=== PATIENT | male | born 1960 | race Caucasian/White ===

== ENCOUNTER 2020-04-24 12:57 | Emergency (ER) | payer BC ==
[2020-04-24 13:21] VITALS: TEMP 98; O2SAT 97
--- NOTE | 2020-04-24 13:30 | ED.PDOC ---
History of Present Illness - General Chief Complaint: ENT Problem Stated Complaint: left earbud stuck in ear Time Seen by Provider: 04/24/20 13:28 Source: patient, RN notes reviewed, Vital Signs reviewed Exam Limitations: no limitations - History of Present Illness Initial Comments: Patient had an earbud breakoff in his left ear while swimming. Patient unable to remove the earbud. Patient denies any pain. Nothing makes it better or worse. There is no radiation of pain or sensation from the earbud. This happened just prior to arrival. Timing/Duration: abrupt Severity: mild EENT Location: ear (L) Prearrival Treatment: no prearrival treatment Worsening Factors: nothing Associated Symptoms: denies symptoms Allergies/Adverse Reactions: Allergies NO KNOWN ALLERGY Allergy (Verified 04/24/20 13:14) Review of Systems - Review of Systems Constitutional: States: no symptoms reported, see HPI. Denies: chills, fever, malaise EENTM: States: see HPI, other - Discomfort in the left ear at the location of the ear but that is in place. Respiratory: States: no symptoms reported. Denies: cough, short of breath, stridor Cardiology: States: no symptoms reported. Denies: chest pain, palpitations, syncope Gastrointestinal/Abdominal: States: no symptoms reported. Denies: abdominal pain, diarrhea, nausea Genitourinary: States: no symptoms reported Musculoskeletal: States: no symptoms reported. Denies: back pain, joint pain, neck pain Skin: States: no symptoms reported. Denies: change in color, rash Neurological: States: no symptoms reported. Denies: headache, numbness, weakness Endocrine: States: no symptoms reported Hematologic/Lymphatic: States: no symptoms reported All other Systems: No Change from Baseline Past Medical History (General) - Vaccination History Hx Tetanus, Diphtheria Vaccination: No Hx Influenza Vaccination: No Hx Pneumococcal Vaccination: No - Activities of Daily Living Hospice Agency (if applicable):: None - Female History Patient is a Female of Child Bearing Age (10 -59 yrs old): No Family Medical History - Family History Mother Family History: Unknown Physical Exam - Physical Exam General Appearance: Alert, Comfortable, Well Developed, Well Groomed, Well Hydrated, Well Nourished Eye Exam: bilateral normal Ear Exam: right ear: canal normal, left ear: foreign body - Earbud which was removed with alligator forceps. There was no trauma to the ear canal. There was no bleeding or redness once the earbud was removed. Patient's discomfort relieved once the earbud was removed., bilateral ear: auricle normal, TM normal Nasal Exam: normal inspection Neck: non-tender, full range of motion, supple, normal inspection Cardiovascular/Respiratory: regular rate, rhythm, normal peripheral pulses, normal breath sounds, no respiratory distress Abdominal Exam: non-tender, no organomegaly Neurologic: titrator II-XII nml as tested, no motor/sensory deficits, alert, normal mood/affect, oriented x 3 Skin Exam: normal color, warm/dry Departure - Departure Clinical Impression: Foreign body in left ear Qualifiers: Encounter type: initial encounter Qualified Code(s): T16.2XXA - Foreign body in left ear, initial encounter Time of Disposition: 13:31 Disposition: Discharge to Home or Self Care Condition: Good Departure Forms: ED Discharge - Pt. Copy, Patient Portal Self Enrollment Diet: resume usual diet Activity: increase activity as tolerated Comments: Patient to follow-up with PCP in 3 to 5 days if indicated. At this time, patient needs no follow-up care.
[2020-04-24 13:38] VITALS: BP 116/80
== END 2020-04-24 13:37 | disposition home or self-care (01) ==
LOC: ER 12:57
DX: T16.2XXA Foreign body in left ear, initial encounter (principal); Y92.9 Unspecified place or not applicable